=== PATIENT | male | born 1930 | race Hispanic/Latino ===

== ENCOUNTER → 2018-09-16 | Outpatient (CLI) | payer MEDICARE ==
--- NOTE | 2018-09-16 13:17 | NUR ---
MBSS COMPLETED. ASPIRATION WITH MIXED, DEEP NON-TRANSIENT PENETRATION WITH THIN AND HONEY-THICK LIQUIDS. RECOMMEND MECHANICAL SOFT/CHOPPED, HONEY-THICK LIQUIDS; PILLS WHOLE WITH APPLESAUCE. PATIENT INFORMATION: Pt IS AN 88 YEAR OLD MALE REFERRED FOR AN MBSS SECONDARY TO DYSPHAGIA AND GERD DIAGNOSIS. Pt WAS ACCOMPANIED BY DAUGHTER TO MBSS. DAUGHTER REPORTS THAT Pt GETS COUGHING SPILLS DURING MEALS AT TIMES (UP TO 3 TIMES A DAY). Pt REPORTS THAT HE FEELS LIKE THE FOOD GETS STUCK IN HIS CHEST. Pt HAS A PAST MEDICAL HISTORY SIGNIFICANT FOR DYSPHAGIA (10 YEARS AGO) USING THICKENER FOR A FEW MONTHS, BACK SURGERY, HERNIA, ARTHRITIS, AND PROSTATE ISSUES. 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 RESULTING IN GROSS SILENT ASPIRATION WITH MIXED TEXTURE, NON-TRANSIENT PENETRATION WITH THIN LIQUIDS AND NECTAR VIA CUP SIP (DELAYED THROAT CLEAR). TRIALS: 1. TSP PUREED: GOOD 2. TSP PUDDING: GOOD 3. TSP MIXED: SILENT GROSS ASPIRATION 4. COOKIE: GOOD 5. TSP THIN LIQUIDS: NON-TRANSIENT DEEP PENETRATION 6. CUP SIP THIN LIQUIDS: SILENT NON-TRANSIENT PENETRATION 7. NECTAR-THICK LIQUIDS VIA CUP SIP: PENETRATION (SILENT) 8. CUP SIP HONEY-THICK LIQUIDS: GOOD RECOMMENDATIONS: 1. MECHANICAL SOFT/CHOPPED, HONEY-THICK LIQUIDS, PILLS WHOLE WITH APPLESAUCE. 2. COMPENSATORY STRATEGIES: *SEATED AT 90 *SLOW RATE *NO MIXED TEXTURES *REMAIN UPRIGHT 30 MINUTES AFTER THE MEAL *ALTERNATE BITES AND SIPS 3. SKILLED SPEECH THERAPY TARGETING DYSPHAGIA 2 TIMES A WEEK 4. GI CONSULT SECONDARY TO ENLARGED UES. REGIONAL MARKETING DIRECTOR PROVIDED DAUGHTER RESULTS AND RECOMMENDATIONS VIA WRITTEN MODALITY. MIXED TEXTURE EXAMPLES WERE PROVIDED IN A HANDOUT. REGIONAL MARKETING DIRECTOR PROVIDED DAUGHTER WITH LIST OF LARYNGEAL AND ORAL MOTOR EXERCISES TO COMPLETE IN THE HOME. THEY VERBALIZED UNDERSTANDING AND COMPLIANCE WITH RECOMMENDATIONS. DAUGHTER VOICED THAT SHE WAS FAMILIAR WITH THICKENER USE. G-CODES SWALLOWING: [id number] Addendum: 09/16/18 at 1332 by AUTUMN CASAREZ, SPT ST Amended: Links added.
== END | disposition home or self-care (01) ==
LOC: RAH 10:00
PROVIDERS: ATTEND Internal Medicine Hematology & Oncology
DX: R13.12 Dysphagia, oropharyngeal phase (principal); K21.9 Gastro-esophageal reflux disease without esophagitis
CPT/HCPCS: G8996; G8997; G8998; 74230; 92611